=== PATIENT | male | born 1950 | race African-American/Black ===

== ENCOUNTER 2017-08-26 10:33 | Outpatient (CLI) | payer MEDICARE ==
[~2017-08-26 10:33] MED LIST: Iopamidol 370 76% 100 ML VIAL ONE
[2017-08-26 11:46] LABS: Anion Gap 14 mmol/L (10-20); BUN (Urea Nitrogen) 14 mg/dL (8.4-25.7); Calc. Creatinine Clearance 0 mL/min (70-130); Calcium 10.2 mg/dL (7.8-10.44); Carbon Dioxide 30 mmol/L (23-31); Chloride 100 mmol/L (98-107); Estimated GFR-MDRD 75; Glucose 92 mg/dL (80-115); Potassium 3.8 mmol/L (3.5-5.1); Sodium 140 mmol/L (136-145)
--- NOTE | 2017-08-26 13:13 | CT ---
CT ABDOMEN AND PELVIS WITH AND WITHOUT IV CONTRAST: 08/26/2017 HISTORY: Elevated PSA and microhematuria. COMPARISON: 08/16/2011 FINDINGS: Mild emphysematous changes are seen at the right lung base. There is bibasilar atelectasis present. Multiple punctate, approximately 2 to 3 mm calculi are seen involving each kidney. There is no urete ral calculus visualized, and there is no evidence of hydronephrosis. A few subcentimeter, xqo-qslbt-uq-characterize, hypodense lesions are seen in the right kidney. No e nhancing renal mass is visualized. The prostate gland is enlarged and lobulated in appearance and also demonstrates heterogeneity. The prostate gland measures 6.6 cm in transverse dimension, and there is mass effect on the posterior-inf erior aspect of the urinary bladder. The urinary bladder is incompletely distended. A few subcentimeter, vox-edvqe-yo-characterize, hypodense lesions are seen in the left hepatic lobe. The liver, pancreas, and bilateral adrenal glands demonstrate a normal CT appearance. Vascular calcifications are seen in the abdominal aorta and iliac arteries. There is a tiny amount of free fluid seen at the right aspect of the pelvis. Degenerative changes are seen in the spine. There is a prominent Schmorl's node at the superior endp late of the L5 vertebral body. IMPRESSION: 1. Enlarged and heterogeneous prostate gland, which results in mass effect on the urinary bladder. 2. Multiple punctate, nonobstructing bilateral renal calculi. No ureteral calculus is seen. 3. A few subcentimeter, tro-ikifh-tc-characterize, hypodense lesions are seen in the right kidney. 4. Subcentimeter, nlf-lxttf-rs-characterize, hypodense lesions in the left hepatic lobe. 5. Atherosclerotic vascular calcifications. POS: EDGAR
== END 2017-08-26 10:34 | disposition home or self-care (01) ==
LOC: SCSCT 10:33
PROVIDERS: ATTEND Urology
DX: N40.1 Benign prostatic hyperplasia with lower urinary tract symptoms (principal); R97.20 Elevated prostate specific antigen [PSA]; R31.0 Gross hematuria; N20.0 Calculus of kidney; K76.89 Other specified diseases of liver; I70.0 Atherosclerosis of aorta
CPT/HCPCS: 74178; 80048

== ENCOUNTER 2018-03-15 09:34 | Outpatient (CLI) | payer MEDICARE ==
--- NOTE | 2018-03-15 12:20 | CT ---
CT PULMONARY LUNG SCAN: Comparison: Prior chest CT noncontrast, 12-03-04 History: Lung screening. FINDINGS: There is a 7 mm lobular noncalcified lymph node of the left upper lobe, which was depicted as a 5 mm nodule on examination 13 years prior (12-03-04). There is a ground glass subtle 5 mm nodule of the lat eral sub pleura of the right middle lobe, also present on prior exam although less conspicuous due to differences in slice selection. The nodule is grossly stable at 5 mm. There is an additional noncalc ified 5 mm subpleural left lung base nodule which was also likely present although less conspicuous o n the 2005 exam. There is evidence of pulmonary emphysema. Scattered areas of subpleural atelectasis and/or scar are p resent. Scattered vascular disease is seen. There is an incidental note of increased diameter of the tracheobronchial tree, likely related to COPD. IMPRESSION: Lung RADS category 3 - probably benign. Scattered pulmonary nodules as discussed above, which were pr esent although less conspicuous on 2005 exam. The 7 mm noncalcified lobular nodule of the left upper lobe is slightly more pronounced than prior exam, although this has been 13 years since the prior exa m. Follow up low dose CT is recommended to confirm continued stability. POS: EDGAR
== END 2018-03-15 09:35 | disposition home or self-care (01) ==
LOC: CT 09:34
PROVIDERS: ATTEND Family Medicine
DX: F17.210 Nicotine dependence, cigarettes, uncomplicated (principal); R91.8 Other nonspecific abnormal finding of lung field
CPT/HCPCS: G0297

== ENCOUNTER 2019-04-18 13:35 | Outpatient (CLI) | payer MEDICARE ==
--- NOTE | 2019-04-18 15:35 | MRI ---
MRI OF THE PELVIS AND PROSTATE WITHOUT AND WITH CONTRAST: COMPARISON: None. HISTORY: Elevated PSA. Negative prostate biopsy a year ago. TECHNIQUE: Multiplanar, multisequence MR images were obtained of the prostate without and with IV contrast. FINDINGS: There is severe hypertrophy of the central gland consistent with BPH. No suspicious low T2 signal le scott is seen within the prostate. No restricted diffusion is seen in the peripheral zone of the pros joaquin. No low signal is seen on the ADC map in the peripheral zone of the prostate. Seminal vesicles are neurovascular and neurovascular bundles are intact. No pelvic abnormality is se en. No marrow signal abnormality is seen. IMPRESSION: PIRADS category 2 - low likelihood that a clinically significantly cancer is present. POS: CET
== END 2019-04-18 13:36 | disposition home or self-care (01) ==
LOC: TBSIIMAG 13:35
PROVIDERS: ATTEND Urology
DX: N40.1 Benign prostatic hyperplasia with lower urinary tract symptoms (principal); R39.89 Other symptoms and signs involving the genitourinary system; Z87.898 Personal history of other specified conditions
CPT/HCPCS: 72197

== ENCOUNTER 2019-08-03 07:05 | Outpatient (CLI) | payer MEDICARE ==
[2019-08-03 13:35] LABS: Mean Corpuscular HGB CONC 32.2 g/dL (32.0-36.0); Mean Corpuscular Hemoglobin 26.3 pg (27.0-31.0); Mean Corpuscular Volume 81.8 fL (78.0-98.0); Mean Platelet Volume 9.7 fL (7.4-10.4); Platelet Count 175 thou/uL (130-400); RBC Distribution Width 15.1 % (11.5-14.5); Red Blood Cell (RBC) Count 5.71 mill/uL (4.70-6.10)
[2019-08-03 13:40] LABS: PTT 34.9 SEC (22.9-36.1); Prothrombin Time 13.1 SEC (12.0-14.7)
[2019-08-03 13:55] LABS: Anion Gap 15 mmol/L (10-20); BUN (Urea Nitrogen) 13 mg/dL (8.4-25.7); Calc. Creatinine Clearance 0 mL/min (70-130); Calcium 9.5 mg/dL (7.8-10.44); Carbon Dioxide 25 mmol/L (23-31); Chloride 101 mmol/L (98-107); Estimated GFR-MDRD 82; Glucose 86 mg/dL (80-115); Potassium 3.3 mmol/L (3.5-5.1); Sodium 138 mmol/L (136-145)
[2019-08-03 14:00] LABS: Bacteria/HPF None Seen HPF (None Seen); Bilirubin Negative (Negative); Blood, Urine Negative (Negative); Clarity Clear (Clear); Glucose, Urine (Dipstick) Normal (Negative); Leukocyte Negative Leu/uL (Negative); Nitrite Negative (Negative); Protein, Urine (Dipstick) Negative (Neg-Trace); RBC/HPF 0-3 HPF (0-3); Squamous Epithelial None Seen HPF (0-3); WBC/HPF 0-3 HPF (0-3)
== END 2019-08-03 07:06 | disposition home or self-care (01) ==
LOC: LABBT 07:05
PROVIDERS: ATTEND Urology
DX: Z01.812 Encounter for preprocedural laboratory examination (principal); N40.1 Benign prostatic hyperplasia with lower urinary tract symptoms; N28.9 Disorder of kidney and ureter, unspecified; I10 Essential (primary) hypertension; R39.89 Other symptoms and signs involving the genitourinary system; Z72.0 Tobacco use; Z87.898 Personal history of other specified conditions; Z87.39 Personal history of other diseases of the musculoskeletal system and connective tissue
CPT/HCPCS: 80048; 81001; 85027; 85610; 85730; 87086

== ENCOUNTER 2019-08-17 07:01 | Observation (INO) | payer MEDICARE ==
[2019-08-17] MEDS ORDERED: Levofloxacin 500 mg/D5W 100 ml Premix Bag ONE (08:08)
[2019-08-17] MEDS ORDERED: Iothalamate Meglumine 60% 50 ML VIAL FS ONE (09:00)
[2019-08-17] MEDS ORDERED: Glycopyrrolate 0.2 MG/ML 5 ML SYRINGE ONE (09:18)
[2019-08-17] MEDS ORDERED: Lidocaine 1% PF 5 ML VIAL ONE (09:18)
[2019-08-17] MEDS ORDERED: ePHEDrine/0.9% NaCl/PF SYRINGE 50 mg/10 ml ONE (09:18)
[2019-08-17] MEDS ORDERED: Rocuronium Bromide 10 MG/ML (10ML VIAL) ONE (09:18)
[2019-08-17] MEDS ORDERED: PHENYLEPHRINE-NS 100 MCG/ML 10 ML SYRINGE ONE (09:18)
[2019-08-17] MEDS ORDERED: PROPOFOL 200 MG/20 ML VIAL ONE (09:18)
[2019-08-17] MEDS ORDERED: B & O ONE (11:17)
[2019-08-17] MEDS ORDERED: Fentanyl 100 MCG/2 ML VIAL ONE (11:27)
[2019-08-17] MEDS ORDERED: Promethazine HCl 25 MG/ML VIAL IM PRN (12:08)
[2019-08-17] MEDS ORDERED: Meperidine HCl/PF 25 MG/ML VIAL SLOW IVP PRN (12:08)
[2019-08-17] MEDS ORDERED: Ondansetron HCl/PF 4 MG/2 ML Vial IVP PRN (12:08)
[2019-08-17] MEDS ORDERED: Promethazine HCl 25 MG/ML VIAL SLOW IVP PRN (12:08)
[2019-08-17] MEDS ORDERED: HYDROmorphone 2 MG/ML VIAL SLOW IVP PRN (12:08)
[2019-08-17] MEDS ORDERED: Ketorolac Tromethamine 30 MG/ML VIAL IVP PRN (12:08)
[2019-08-17] MEDS ORDERED: Acetaminophen 500 MG TAB PO PRN (12:12)
[2019-08-17] MEDS ORDERED: Phenazopyridine HCl 97.5 MG TABLET PO PRN (12:12)
[2019-08-17] MEDS ORDERED: Zolpidem Tartrate 5 MG TAB PO PRN (12:12)
[2019-08-17] MEDS ORDERED: hydrALAZINE 20 MG/ML VIAL SLOW IVP PRN ×2 (12:12)
[2019-08-17] MEDS ORDERED: Morphine 2 MG/ML SYRINGE SLOW IVP PRN (12:12)
[2019-08-17] MEDS ORDERED: Morphine 4 MG/ML VIAL SLOW IVP PRN (12:12)
[2019-08-17] MEDS ORDERED: Ondansetron PF 4 MG/2 ML Vial IVP PRN (12:12)
[2019-08-17] MEDS ORDERED: diphenhydrAMINE 25 MG CAP PO PRN (12:12)
[2019-08-17] MEDS ORDERED: Mag-Al 1200 mg/1200 mg/30 ML UDCUP PO PRN (12:12)
[2019-08-17] MEDS ORDERED: Bisacodyl 10 MG SUPP PR PRN (12:12)
[2019-08-17] MEDS ORDERED: HYDROcodone/Acetaminophen 5/325 mg Tablet PO PRN ×2 (12:12)
[2019-08-17] MEDS ORDERED: Hyoscyamine Sulfate SL 0.125 mg Tablet ONE ×2 (12:27)
[2019-08-17 12:56] LABS: #Lymphocytes 0.8 thou/uL (1.20-3.40); #Monocytes 0.5 thou/uL (0.11-0.59); #Neutrophils 3.5 thou/uL (1.40-6.50); %Basophils 0.3 % (0.0-1.0); %Eosinophils 0.8 % (0.0-10.0); %Lymphocytes 16.9 % (21.0-51.0); %Monocytes 9.9 % (0.0-10.0); %Neutrophils 72.1 % (42.0-75.0); Hemoglobin 12.3 g/dL (14.0-18.0); Mean Corpuscular HGB CONC 32.4 g/dL (32.0-36.0); Mean Corpuscular Hemoglobin 26.9 pg (27.0-31.0); Mean Platelet Volume 7.9 fL (7.4-10.4); Platelet Count 176 thou/uL (130-400); RBC Distribution Width 14.1 % (11.5-14.5); Red Blood Cell (RBC) Count 4.58 mill/uL (4.70-6.10); White Blood Cell (WBC) Count 4.9 thou/uL (4.8-10.8)
[2019-08-17 13:23] LABS: Anion Gap 13 mmol/L (10-20); BUN (Urea Nitrogen) 13 mg/dL (8.4-25.7); Calc. Creatinine Clearance 61 mL/min (70-130); Calcium 8.5 mg/dL (7.8-10.44); Carbon Dioxide 26 mmol/L (23-31); Chloride 104 mmol/L (98-107); Estimated GFR-MDRD Greater than 90; Glucose 107 mg/dL (80-115); Potassium 3.5 mmol/L (3.5-5.1); Sodium 139 mmol/L (136-145)
[2019-08-17] MEDS: Sodium Chloride 0.9% 1,000 ML IV SCH ×2 (16:15→23:36)
[2019-08-17] MEDS ORDERED: cefTRIAXone\\ROCEPHIN 2 GM in Sodium Chloride 0.9% 100 ML IVPB SCH (17:00)
--- NOTE | 2019-08-17 17:59 | OP ---
DATE OF PROCEDURE: 08/17/2019 PREOPERATIVE DIAGNOSES: 1. A 69-year-old male with history of trilobar hyperplasia of the prostate with significant intravesical median lobe. 2. History of elevated PSA, biopsy negative for malignancy. POSTOPERATIVE DIAGNOSES: 1. A 69-year-old male with history of trilobar hyperplasia of the prostate with significant intravesical median lobe. 2. History of elevated PSA, biopsy negative for malignancy. PROCEDURES PERFORMED: Cystoscopy, transurethral resection of prostate. ANESTHESIA: General. COMPLICATIONS: None apparent. DISPOSITION: Recovery room in stable condition. SPECIMEN: TUR of prostate. INDICATIONS FOR PROCEDURE AND HISTORY: Mr. Mancia is a 69-year-old male with history of BPH, presented with elevated PSA, underwent prostate biopsy negative for malignancy. He has been on dual medical therapy and presents for transurethral resection of prostate. As he has a significantly enlarged intravesical median lobe measuring about 2.5 to 3 cm in the bladder component, he underwent prostate biopsy negative for malignancy, and he has been informed regarding various treatment options including suprapubic prostatectomy, both open and robotic, transurethral resection of prostate, various approach such as laser, UroLift. Given his large prostate volume, we had discussed staged TURP, suprapubic prostatectomy. As he favors less invasive approach, he presents for TUR of prostate with full understanding that he will most likely require staged intervention given his large prostate volume. Risks and complications of the procedure were reviewed with him in detail including, but not limited to bleeding, pain, infection, injury to adjacent organs, and urosepsis. As his UOs are again unable to be identified on local cystoscopy, possible injury to the ureteral orifices requiring secondary procedure and incontinence of stress and urge were reviewed with him in detail, and he desired to proceed. DESCRIPTION OF PROCEDURE: After an informed consent was signed, the patient was taken to the operating room, placed in a dorsal lithotomy position with the genital area prepped and draped in the usual surgical sterile fashion. A 21-Tongan cystoscope was utilized for cystoscopy, which again demonstrated severe trilobar hyperplasia of the prostate with a large intravesical median lobe. The UOs were unable to be identified with a 30-degree lens. Diffuse trabeculations were noted with no evidence of bladder diverticulum, stones, or tumors was appreciated. The UOs were able to be identified, however, only with a 70-degree lens, I was only able to see the right UO, off the reflection of the median lobe, however, not involving the mucosa of the median lobe itself. As I was able to identify the right UO, we subsequently placed a 26-Tongan resectoscope with a visual obturator. Transurethral resection of the prostate was performed taking down the intravesical median lobe first. As we found the right UO, this was visually marked , and we began to resect the median lobe flush to the bladder mucosa and bladder neck. With resection of the median lobe down to the level of the bladder neck mucosa, I was able to see the left UO as well. They were kept out of harm's way at all times. He had a significant enlarged median lobe, and we spent a large portion of our time resecting the median lobe itself and the bladder neck. This was resected flush to the bladder neck mucosa, muscle fibers were seen, and we did not further pursue resecting further. The lateral lobes of the prostate were taken down to meet the resection of the median lobe resection line. We performed lateral lobe resection systematically. Good hemostasis remained throughout. All prostatic chips were evacuated with Ellik evacuator. Given the elapsed time, with full understanding of staged intervention, we terminated the procedure as I was able to create a wide bladder neck with resolution of the obstructing median lobe. A 22-Tongan 3-way Casas catheter was placed. There was some hang up at the bladder neck; however, I was able to pass it into the bladder. 40 mL of sterile water was insufflated, and catheter was placed off traction for now, I will monitor him on CBI for degree of hematuria. DISPOSITION: Recovery room in stable condition. Job ID: [id number] [facility]
[2019-08-17] MEDS: Docusate 100 MG CAP PO SCH (19:59)
[2019-08-17] MEDS: Famotidine/PF 20 mg/2ml Vial SLOW IVP SCH (19:59)
[2019-08-18 04:54] VITALS: TEMP 98.2
[2019-08-18 05:29] LABS: #Lymphocytes 1.1 thou/uL (1.20-3.40); #Monocytes 0.8 thou/uL (0.11-0.59); #Neutrophils 4.6 thou/uL (1.40-6.50); %Basophils 0.2 % (0.0-1.0); %Eosinophils 0.5 % (0.0-10.0); %Lymphocytes 16.9 % (21.0-51.0); %Monocytes 11.4 % (0.0-10.0); %Neutrophils 70.9 % (42.0-75.0); Hemoglobin 12.3 g/dL (14.0-18.0); Mean Corpuscular HGB CONC 32.7 g/dL (32.0-36.0); Mean Corpuscular Volume 82.6 fL (78.0-98.0); Mean Platelet Volume 8.2 fL (7.4-10.4); Platelet Count 195 thou/uL (130-400); RBC Distribution Width 14.2 % (11.5-14.5); Red Blood Cell (RBC) Count 4.56 mill/uL (4.70-6.10); White Blood Cell (WBC) Count 6.5 thou/uL (4.8-10.8)
[2019-08-18 05:56] LABS: Anion Gap 11 mmol/L (10-20); BUN (Urea Nitrogen) 10 mg/dL (8.4-25.7); Calc. Creatinine Clearance 65 mL/min (70-130); Calcium 8.1 mg/dL (7.8-10.44); Carbon Dioxide 24 mmol/L (23-31); Chloride 105 mmol/L (98-107); Estimated GFR-MDRD Greater than 90; Glucose 86 mg/dL (80-115); Potassium 3.4 mmol/L (3.5-5.1); Sodium 137 mmol/L (136-145)
--- NOTE | 2019-08-18 07:51 | PRG ---
DATE OF SERVICE: 08/18/2019 SUBJECTIVE: The patient without complaints. OBJECTIVE: VITAL SIGNS: Stable. He is afebrile. GENITOURINARY: Urine output with CBI held is candida, pink tinged. No clots. CBI restarted with immediate clearing. ABDOMEN: Soft, nontender, nondistended. LABORATORY DATA: Morning labs are stable with hemoglobin 12.3, unchanged from postop. Creatinine 0.9. IMPRESSION AND PLAN: Mr. Mancia is a 69-year-old male with history of trilobar hyperplasia of the prostate with very large intravesical median lobe, postop day #1, status post staged TURP. Voiding trial initiated. The patient to ambulate, increase water consumption. We will keep voided urine at bedside. will follow up with patient this afternoon, regarding possible discharge. Job ID: [id number] MTDD
[2019-08-18] MEDS: Docusate 100 MG CAP PO SCH (07:56)
[2019-08-18] MEDS: Famotidine/PF 20 mg/2ml Vial SLOW IVP SCH (07:57)
[2019-08-18] MEDS: Sodium Chloride 0.9% 1,000 ML IV SCH (08:03)
[2019-08-18] MEDS ORDERED: Dutasteride 0.5 MG CAP PO SCH (09:00)
[2019-08-18] MEDS ORDERED: FLU VACC TS2019-20(65YR UP)/PF 180 MCG/0.5 ML SYRINGE IM ONE (09:00)
[2019-08-18] MEDS ORDERED: Tamsulosin HCl 0.4 MG CAP PO SCH ×2 (09:00)
[2019-08-18] MEDS ORDERED: Amlodipine 10 MG TAB PO SCH (09:00)
[2019-08-18 13:43] VITALS: BP 138/73
[2019-08-18 14:11] VITALS: BMI 18.8
--- NOTE | 2019-08-18 15:20 | DIS ---
DATE OF ADMISSION: 08/17/2019 DATE OF DISCHARGE: 08/18/2019 ADMITTING DIAGNOSIS: Trilobar hyperplasia of the prostate with large intravesical median lobe. PROCEDURES: Postop day #1, cysto, transurethral resection of the prostate. CONDITION: Stable. DISPOSITION: To home. DISCHARGE MEDICATIONS: Resume home medications. However, no aspirin and ibuprofen products. Levaquin and Azo, sent to pharmacy [facility] on . DISCHARGE INSTRUCTIONS: No heavy lifting within 10 to 15 pounds, hold aspirin and ibuprofen products until followup appointment. FOLLOWUP: followup appointment on August 22 at 2:00 p.m. BRIEF HOSPITAL COURSE: Mr. Mancia is a 69-year-old male, with history of elevated PSA. Prostate biopsy negative for malignancy. He has a significantly large prostate volume, with severely obstructing intravesical median lobe of the prostate. He underwent transurethral resection of prostate with full understanding regarding stage intervention given large prostate volume and large intravesical median lobe. Surgery was uneventful. His followup CBC and BMP are grossly unremarkable. CBI was held on postop day #1, urine output pink-tinged, underwent successful voiding trial. He is satisfied with his urinary flow, significant improvement in the caliber of his flow already. No significant PVR of concern, 74 mL. Urine output voided is pink-tinged. The patient cleared to be discharged home. Job ID: [id number] MTDD
== END 2019-08-18 15:36 | disposition home or self-care (01) ==
LOC: SDC 07:01 → SJJU 16:05
PROVIDERS: ADMIT Urology; ATTEND Urology
PROC: 0VT08ZZ Resection of Prostate, Via Natural or Artificial Opening Endoscopic (ICD-10-PCS; principal; 2019-08-17)
DX: N40.1 Benign prostatic hyperplasia with lower urinary tract symptoms (principal); I12.9 Hypertensive chronic kidney disease with stage 1 through stage 4 chronic kidney disease, or unspecified chronic kidney disease; N18.9 Chronic kidney disease, unspecified; F17.210 Nicotine dependence, cigarettes, uncomplicated; M10.9 Gout, unspecified; J30.2 Other seasonal allergic rhinitis; Z79.899 Other long term (current) drug therapy; Z88.8 Allergy status to other drugs, medicaments and biological substances
CPT/HCPCS: 52601; 80048 ×2; 85025 ×2; 86850; 86900; 86901; 88305; 96361 ×2; 96365; 96375; 96376; G0378 ×2; 36415; 51798; J0696; J1956; J2001; J2704; J3010; J3490; S0028

== ENCOUNTER 2020-01-13 08:32 | Outpatient (CLI) | payer MEDICARE ==
--- NOTE | 2020-01-13 10:57 | ULT ---
ABDOMINAL AORTIC ULTRASOUND: DATE: 01/13/2020. PROVIDED CLINICAL HISTORY: Screening. FINDINGS: The abdominal aorta is nonaneurysmal, measuring 2.6 cm in maximum transverse dimension proximally. T he right and left common iliac arteries appear nonaneurysmal as visualized. IMPRESSION: No sonographic evidence for abdominal aortic aneurysm. POS: KAMILA
== END 2020-01-13 08:33 | disposition home or self-care (01) ==
LOC: BICULT 08:32
PROVIDERS: ATTEND Family Medicine
DX: Z13.6 Encounter for screening for cardiovascular disorders (principal)
CPT/HCPCS: 76706

== ENCOUNTER 2020-06-19 10:28 | Outpatient (CLI) | payer MEDICARE ==
--- NOTE | 2020-06-19 12:15 | CT ---
LOW DOSE CT SCAN OF THE CHEST WITHOUT IV CONTRAST FOR LUNG CANCER SCREENING: Date: 06/19/2020 HISTORY: Current smoker. Nicotine dependence. COMPARISON: 03/15/2018. FINDINGS: The previously noted parenchymal solid lung nodules are stable. These include 7.0 mm nodule in the le ft upper lobe, 5.0 mm nodule in the left lower lobe, and 7.0 mm parafissural nodule on the right. No new lung nodules are seen. Emphysematic changes are again seen. No pleural or pericardial effusions are identified. There are va scular calcifications without evidence of aneurysmal dilatation of the thoracic aorta. There are dege nerative changes in the spine. IMPRESSION: Lung-RADS Category 2 - Benign. RECOMMENDATION: Follow-up LDCT of the chest is recommended in 12 months. POS: OFF
== END 2020-06-19 10:29 | disposition home or self-care (01) ==
LOC: BICCT 10:28
PROVIDERS: ATTEND Family Medicine
DX: Z12.2 Encounter for screening for malignant neoplasm of respiratory organs (principal); F17.210 Nicotine dependence, cigarettes, uncomplicated
CPT/HCPCS: G0297

== ENCOUNTER 2021-05-15 13:57 | Outpatient (CLI) | payer MEDICARE | END 2021-05-15 13:58 | disposition home or self-care (01) | LOC: SCSRAD 13:57 | PROVIDERS: ATTEND Physician Assistant Medical | DX: R63.4 Abnormal weight loss (principal); R00.0 Tachycardia, unspecified | CPT/HCPCS: 71046 ==

== ENCOUNTER 2021-07-25 12:38 | Outpatient (CLI) | payer MEDICARE | END 2021-07-25 12:39 | disposition home or self-care (01) | LOC: BICCT 12:38 | PROVIDERS: ATTEND Family Medicine | DX: Z12.2 Encounter for screening for malignant neoplasm of respiratory organs (principal); Z72.0 Tobacco use | CPT/HCPCS: 71271 ==

== ENCOUNTER 2021-09-19 13:20 | Outpatient (CLI) | payer MEDICARE | END 2021-09-19 13:21 | disposition home or self-care (01) | LOC: BICULT 13:20 | PROVIDERS: ATTEND Urology | DX: N20.0 Calculus of kidney (principal); R93.421 Abnormal radiologic findings on diagnostic imaging of right kidney; R93.422 Abnormal radiologic findings on diagnostic imaging of left kidney | CPT/HCPCS: 36415; 76770; 80048; 81001; G0103 ==

== ENCOUNTER 2021-09-23 14:46 | Outpatient (CLI) | payer MEDICARE | END 2021-09-23 14:47 | disposition home or self-care (01) | LOC: SCSRAD 14:46 | PROVIDERS: ATTEND Urology | DX: N20.0 Calculus of kidney (principal) | CPT/HCPCS: 74018 ==